=== PATIENT | female | born 1970 | race American Indian/Alaskan Native ===

== ENCOUNTER 2019-05-01 07:39 | Emergency (ER) | payer OTHER ==
[2019-05-01 07:47] VITALS: BP 144/84
[2019-05-01] MEDS ORDERED: diphenhydrAMINE 50 MG/ML VIAL IV ONE (08:48)
[2019-05-01] MEDS ORDERED: METOCLOPRAMIDE 10 MG/2 ML INJ IV ONE (08:48)
[2019-05-01] MEDS ORDERED: IBUPROFEN 800 MG TAB PO ONE (08:53)
--- NOTE | 2019-05-01 08:57 | Emergency Department Report ---
ED General Adult HPI - General Chief complaint: Extremity Injury, Upper Stated complaint: LFT HAND/WRIST INJURY/PAIN Time Seen by Provider: 05/01/19 08:23 Source: patient Mode of arrival: Ambulatory Limitations: No Limitations - History of Present Illness Initial comments: 48-year-old female presents with complaints of left hand pain and swelling after a fall at [employer] yesterday. She rates the pain as 8/10 in severity that worsens with movement. She denies any loss sensation. -: Sudden Associated Symptoms: denies other symptoms - Related Data Previous Rx's Medication Instructions Recorded Last Taken Type Diclofenac Sodium 50 mg PO TID PRN #21 tablet. 05/01/19 Unknown Rx Mupirocin [Bactroban 2%] 1 applic TP TID 7 Days #1 tube 05/01/19 Unknown Rx Allergies Allergy/AdvReac Type Severity Reaction Status Date / Time No Known Allergies Allergy Unverified 05/01/19 07:47 ED Review of Systems ROS: Stated complaint: LFT HAND/WRIST INJURY/PAIN Other details as noted in HPI Comment: All other systems reviewed and negative Musculoskeletal: as per HPI ED Past Medical Hx - Past Medical History Previous Medical History?: No - Surgical History Past Surgical History?: Yes Additional Surgical History: Bilatteral knee surgery - Social History Smoking Status: Never Smoker - Medications Home Medications: Home Medications Medication Instructions Recorded Confirmed Last Taken Type Diclofenac Sodium 50 mg PO TID PRN #21 tablet. 05/01/19 Unknown Rx Mupirocin [Bactroban 2%] 1 applic TP TID 7 Days #1 tube 05/01/19 Unknown Rx ED Physical Exam - General Limitations: No Limitations General appearance: alert, in no apparent distress - Head Head exam: Present: atraumatic, normocephalic - Eye Eye exam: Present: normal appearance - Neck Neck exam: Present: full ROM - Respiratory Respiratory exam: Absent: respiratory distress - Cardiovascular Cardiovascular Exam: Present: regular rate - Rectal Rectal exam: Present: deferred - Expanded Upper Extremity Exam Left Hand L/R Front: 1 - Positive: abrasion Hand L/R Back: 1 - Tenderness to palpation with mild to moderate swelling noted. Neuro motor exam: Present: wrist extension intact Neurosensory exam: Present: radial nerve intact, ulnar nerve intact, median nerve intact Vascular: Present: normal capillary refill. Absent: vascular compromise - Neurological Exam Neurological exam: Present: alert, oriented X3 - Psychiatric Psychiatric exam: Present: normal affect, normal mood - Skin Skin exam: Present: warm, dry, normal color. Absent: rash, ecchymosis ED Course Vital Signs 05/01/19 07:46 Temperature 98.3 F Pulse Rate 62 Respiratory 16 Rate Blood Pressure 144/84 O2 Sat by Pulse 100 Oximetry ED Medical Decision Making - Radiology Data Radiology results: report reviewed LEFT HAND, 3 VIEWS INDICATION: 5th and 6th MC pain after injury. COMPARISON: None. IMPRESSION: There is moderate diffuse soft tissue swelling. No acute osseous injury or joint pathology is identified. - Medical Decision Making Patient here for left hand pain after a fall yesterday. No fracture noted on x- ray. Patient's tetanus vaccination updated today given abrasion. Patient to DC home with Bactroban and instructions for ice rapid for treatment. Recommend follow-up with Ortho as needed. Discussed strict return precautions in detail with patient who states understanding. Critical care attestation.: If time is entered above; I have spent that time in minutes in the direct care of this critically ill patient, excluding procedure time. ED Disposition Clinical Impression: Sprain of left hand Qualifiers: Encounter type: initial encounter Qualified Code(s): S63.92XA - Sprain of unspecified part of left wrist and hand, initial encounter Disposition: DC-01 TO HOME OR SELFCARE Is pt being admited?: No Condition: Stable Instructions: Hand Sprain (ED) Prescriptions: Mupirocin [Bactroban 2%] 1 applic TP TID 7 Days #1 tube Diclofenac Sodium 50 mg PO TID PRN #21 tablet.dr JIMENEZ Reason: Pain , Severe (7-10) Referrals: PRIMARY CARE, [Primary Care Provider] - 3-5 Days Forms: Work/School Release Form(ED)
--- NOTE | 2019-05-01 09:23 | XRay Report ---
LEFT HAND, 3 VIEWS INDICATION: 5th and 6th MC pain after injury. COMPARISON: None. IMPRESSION: There is moderate diffuse soft tissue swelling. No acute osseous injury or joint pathol ogy is identified. Signer Name: Garo Howell Jr, MD Signed: 05/01/2019 9:19 AM Workstation Name: [id number]
== END 2019-05-01 09:58 | disposition home or self-care (01) ==
LOC: ED 07:39
DX: S63.92XA Sprain of unspecified part of left wrist and hand, initial encounter (principal); Z98.890 Other specified postprocedural states; W19.XXXA Unspecified fall, initial encounter; Y93.89 Activity, other specified; Y92.22 Religious institution as the place of occurrence of the external cause; Y99.8 Other external cause status